=== PATIENT | male | born 2005 | race Caucasian/White ===

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

== ENCOUNTER 2023-11-29 16:17 | Outpatient (REF) | payer MEDICAID, SELFPAY ==
[2023-11-29 17:24] LABS: MANUAL DIFF FLAG NO
[2023-11-29 17:32] LABS: Basophils Percent Auto 0.3 % (0-2); Eosinophils Absolute Auto 0.5 X10*3/uL (0.0-0.4); Eosinophils Percent Auto 8.1 % (0-4); Hemoglobin 13.6 g/dl (14.0-18.0); Imm Gran Abs Auto 0.02 X10*3/uL (0.00-0.03); Imm Gran Pct Auto 0.3 % (0.0-0.4); Lymphocytes Absolute Auto 1.9 X10*3/uL (1.2-4.9); Lymphocytes Percent Auto 29.6 % (20-40); Mean Corpuscular HGB Conc 32.4 g/dl (31.0-36.0); Mean Corpuscular Hemoglobin 27.5 pg (27.0-33.0); Mean Corpuscular Volume 84.8 fL (80.0-98.0); Mean Platelet Volume 9.4 fL (9.4-12.4); Monocytes Absolute Auto 0.5 X10*3/uL (0.1-1.2); Monocytes Percent Auto 7.9 % (2-11); Neutrophils Absolute Auto 3.4 x10*3/uL (2.0-8.3); Neutrophils Percent Auto 53.8 % (45-73); Platelet Count 300 X10*3/uL (160-400); Red Blood Count 4.95 X10*6/uL (4.60-5.80); Red Cell Distribution Width 12.5 % (11.0-16.0); White Blood Count 6.3 X10*3/uL (4.8-10.8)
[2023-11-29 18:15] LABS: Alanine Aminotransferase 51 U/L (0-40); Albumin Level 4.5 g/dL (3.5-5.0); Alkaline Phosphatase 70 U/L (39-117); Anion Gap 13 (12-20); Aspartate Amino Transferase 36 U/L (5-37); Bilirubin Total 0.3 mg/dL (0.0-1.0); Blood Urea Nitrogen 16 mg/dL (9-16); Calcium 9.6 mg/dL (8.4-10.2); Carbon Dioxide 27 mmol/L (22-29); Chloride 106 mmol/L (96-108); Cholesterol 149 mg/dL (<200); Estimated Glomerular Filt Rate > 60; Glucose Random 96 mg/dL (60-115); HDL Cholesterol 35 mg/dL (>40); LDL Cholesterol Calculated 80 mg/dL (<100); Potassium 3.9 mmol/L (3.3-5.1); Sodium 142 mmol/L (135-145); Total Protein 7.4 g/dL (6.5-8.0); Triglycerides 170 mg/dL (<150)
[2023-11-29 18:30] LABS: TSH reflex Free T4 1.95 uIU/mL (0.32-4.0)
[2023-11-30 04:27] LABS: HIV AB/AG Nonreactive (Nonreactive); HIV Num 1 0.06 S/CO (0.00-0.99); ~Hepatitis C Antibody Nonreactive (Nonreactive)
[2023-11-30 05:26] LABS: Estimated Average Glucose 111 mg/dL; Hemoglobin A1C 121.8751 umol/L; Hemoglobin A1c % 5.5 % (<6.0); Total Hemoglobin (HGBA1C) 3350.0486 umol/L
[2023-11-30 14:44] LABS: CT PCR DETECTED (Not Detect.); NG PCR NOT DETECTED (Not Detect.)
== END 2023-11-29 16:18 | disposition home or self-care (01) ==
LOC: HO.HHCL 16:17
PROVIDERS: Visit Provider Nurse Practitioner Family
DX: Z00.00 Encounter for general adult medical examination without abnormal findings (principal); R55 Syncope and collapse
CPT/HCPCS: 36415; 80053; 80061; 83036; 84443; 85025; 86803; 87389; 87491; 87591

== ENCOUNTER 2024-12-18 16:35 | Outpatient (REF) | payer MEDICAID, SELFPAY ==
--- OUTSIDE RECORDS SUMMARY | 2024-12-18 10:45 | XMS_ITS | Encounter Summary ---
Author Organization [employer] Address [address] [place] [address] [address] [address] Care Team Providers Care Graduate Teaching Associate Name Role Phone Ruth Peter NP Primary Care Provider [phone] Reason for Referral * Consultation (Routine) - Canceled Specialty Diagnoses / Procedures Referred By Sirisha moses Referred To Contact Physical Therapy Diagnoses Chronic pain of right knee Ruth Peter NP [address] [place] [address] Phone: tel: fax: Referral ID Status Reason Start Date Expiration Date Visits Requested Visits Authorized [id number] Canceled Specialty Services Required 12/18/2024 12/18/2025 1 1 Reason for Visit * Reason Comments Annual Exam Encounter Details Date Type Department Care Team ([facility] st Contact Info) Description 12/18/2024 10:45 AM EST Office Visit [facility] [address], [place] [phone] Ruth Peter NP [address] [place] [address] Healthcare maintenance (Primary Dx); Acute cough; Mild intermittent asthma, unspecified whether complicated; Dietary counseling; Exercise counseling; Chronic pain of right knee Social History Tobacco Use Types Packs/Day Years Used Date Smoking Tobacco: Never Passive Smoke Exposure: Never Smokeless Tobacco: Never Alcohol Use Standard Drinks/Week Comments Never 0 (1 standard drink = 0.6 oz pur e alcohol) Depression Answer Date Recorded Patient Health Questionnaire-9 Score 3 12/18/2024 Patient Health Questionnaire-9 Score 3 12/18/2024 Last PHQ-9: Questionnaire Data Not on file 1 02/18/2024 Housing Stability Answer Date Recorded What is your housing situation today? I have rl cleaning 12/11/[address] you li ve. Do you have problems with any of the following? None of the above 12/11/2024 Food Insecurity Answer Date Recorded Within the past 12 months, y ou worried that your food would run out before you got money to buy more: Never True 12/11/2024 Within the past 12 months,th e food you bought just didn't last and you didn't have enough money to get more: Never True 04/2024 Transportation Answer Date Recorded In the past 12 months, has l ack of transportation kept you from medical appts, meetings, work or from getting things needed for daily living? No 12/11/2024 Utilities Answer Date Recorded In the past 12 months, has t he electric, gas, oil or water company threatened to shut off services in your home? No 12/11/2024 Depression Answer Date Recorded Patient Health Questionnaire-2 Score 1 12/18/2024 Internet Access Answer Date Recorded Internet Access Q1 Yes 12/11/2024 Internet Access Q2 Not on file 12/11/2024 Sex and Gender Information Value Date Recorded Sex Assigned at Male 12/08/2021 10:18 AM EDT Legal Sex Male 10:18 AM EDT Gender Identity Male 12/08/2021 10:18 AM EDT Sexual Orientation Straight 12/08/2021 10 :18 AM EDT documented as of this encounter Last Filed Vital Signs Vital Sign Reading Time Taken Comments Blood Pressure 122/58 12/18/2024 10:59 AM EST Pulse 76 12/18/2024 10:59 AM EST Temperature 36.9 C (98.4 F) 12/18/2024 10:59 AM EST Respiratory Rate 20 12/18/2024 10:59 AM EST Oxygen Saturation 99% 12/18/2024 10:59 AM EST Inhaled Oxygen Concentration - - Weight 103 kg (226 lb 6.4 oz) 12/18/2024 10:59 A M EST Height 172.7 cm (5' 8 ) 12/18/2024 10:59 AM EST Body Mass Index 34.42 12/18/2024 10:59 AM EST documented in this encounter Functional Status * Over the past 2 weeks, how often have you been bothered by any of the following problems? Question Answer Date of Assessment Author Patient Health Questionnaire -2 Score 1 12/18/2024 11:31 AM Jacque Glasgow [place] * Little interest or pleasure in doing things Answer Date of Assessment Author Several days 12/18/2024 11:31 AM Jacque Glasgow [place] * Feeling down, depressed, or hopeless Answer Date of Assessment Author Not at all 12/18/2024 11:31 AM Jacque Glasgow [place] * Trouble falling or staying asleep, or sleeping too much Answer Date of Assessment Author Several days 12/18/2024 11:31 AM Jacque Glasgow [place] * Feeling tired or having little energy Answer Date of Assessment Author Several days 12/18/2024 11:31 AM Jacque Glasgow [place] * Poor appetite or overeating Answer Date of Assessment Author Not at all 12/18/2024 11:31 AM Jacque Glasgow [place] * Feeling bad about yourself - or that you are a failure or have let yourself or your family down Answer Date of Assessment Author Not at all 12/18/2024 11:31 AM Jacque Glasgow [place] * Trouble concentrating on things, such as reading the newspaper or watching television Answer Date of Assessment Author Not at all 12/18/2024 11:31 AM Jacque Glasgow [place] * Moving or speaking so slowly that other people could have noticed? Or the opposite - being so fidgety or restless that you have been moving around a lot more than usual. Answer Date of Assessment Author Not at all 12/18/2024 11:31 AM Jacque Glasgow [place] * Thoughts that you would be better off or hurting yourself in some way Answer Date of Assessment Author Not at all 12/18/2024 11:31 AM Jacque Glasgow [place] * Patient Health Questionnaire-9 Score Answer Date of Assessment Author 3 12/18/2024 11:31 AM Jacque Glasgow [place] * How difficult have these problems made it for you to do your work, take care of things at home, or get along with other people? Answer Date of Assessment Author Somewhat difficult 12/18/2024 11:31 AM Jacque Cristina [place] * Over the last 2 weeks, how often have you been bothered by any of the following problems? Question Answer Date of Assessment Author Feeling nervous, anxious, or on edge 1 12/18/2024 11:32 AM Jacque Glasgow [place] Not being able to stop or co ntrol worrying 0 12/18/2024 11:32 AM Jacque Glasgow [place] Worrying too much about diff erent things 0 12/18/2024 11:32 AM Jacque Glasgow [place] Trouble relaxing 0 12/18/2024 11:32 AM Jacque Glasgow [place] Being so restless that it is hard to sit still 0 12/18/2024 11:32 AM Jacque Glasgow [place] Becoming easily annoyed or irritable 1 12/18/2024 11:32 AM Jacque Glasgow [place] Feeling afraid as if somethi ng awful might happen 0 12/18/2024 11:32 AM Jacque Glasgow MA KOKI-7 Total Score 2 12/18/2024 11:32 AM Jacque Glasgow [place] documented as of this encounter Progress Notes * Ruth Peter NP - 12/18/2024 10:45 AM EST Subjective: Karthik Carvalho is a 19 y.o. male who presents to the office for a physical exam. Interim history: Karthik Carvalho, 19-year-old male - History of asthma, no current flare-ups reported - Focus on weight loss, lost approximately 10 lbs over the past year (from 236 lbs to 226 lbs) - Right knee pain with pressure or when getting on bed, no pain with walking - Denies depression, anxiety, alcohol, tobacco, or drug use - Reports mental health is good Problem List[1] Surgical History[2] Family History[3] Social History Living situation: house with mom and stepdad, and sibling, Employment/Education: Diet/exercise: Substance use: -alcohol no -tobacco no -opioids no Sexual activity: Mental health: Patient Health Questionnaire-9 Score: 3 (12/18/2024 11:31 AM) Patient Health Questionnaire-2 Score: 1 (12/18/2024 11:31 AM) Thoughts that you would be better off or hurting yourself in some way: Not at all (12/18/2024 11:31 AM) Allergies[4] Review of Systems Constitutional: Negative for activity change and appetite change. HENT: Negative for congestion and dental problem. Respiratory: Positive for shortness of breath and wheezing. Negative for apnea, choking and chest tightness. Cardiovascular: Negative for chest pain and leg swelling. Genitourinary: Negative for difficulty urinating and dysuria. Vitals: 12/18/24 1059 BP: 122/58 BP Location: Right arm Patient Position: Sitting BP Cuff Size: Large adult Pulse: 76 Resp: 20 Temp: 98.4 ??F (36.9 ??C) TempSrc: Oral SpO2: 99% Weight: 226 lb 6.4 oz (103 kg) Height: 5' 8 (1.727 m) Physical Exam Vitals reviewed. Constitutional: Appearance: Normal appearance. He is obese. HENT: Head: Normocephalic. Right Ear: Tympanic membrane and external ear normal. Left Ear: Tympanic membrane and external ear normal. Nose: Nose normal. Mouth/Throat: Mouth: Mucous membranes are moist. Eyes: Conjunctiva/sclera: Conjunctivae normal. Cardiovascular: Rate and Rhythm: Normal rate. Pulses: Normal pulses. Heart sounds: Normal heart sounds. Pulmonary: Effort: Pulmonary effort is normal. Breath sounds: Normal breath sounds. Abdominal: General: Bowel sounds are normal. Palpations: Abdomen is soft. Musculoskeletal: Cervical back: Neck supple. Skin: General: Skin is warm. Capillary Refill: Capillary refill takes less than 2 seconds. Neurological: General: No focal deficit present. Mental Status: He is alert. Psychiatric: Mood and Affect: Mood normal. - ABDOMEN: Abdomen nontender to palpation. - MUSCULOSKELETAL: Right knee tenderness upon palpation; possible patellofemoral syndrome observed. Assessment & Plan Healthcare maintenance Orders: Chlamydia/N. Gonorrhoeae, PCR, Urine Acute cough Orders: albuterol 108 (90 Base) MCG/ACT inhaler; Inhale 2 puffs every 6 (six) hours if needed for wheezing. Mild intermittent asthma, unspecified whether complicated Orders: albuterol 108 (90 Base) MCG/ACT inhaler; Inhale 2 puffs every 6 (six) hours if needed for wheezing. Dietary counseling Dietary Recommendations: Fruits, vegetables, whole grains, protein foods, and fat-free or low-fat dairy products are healthychoices. Eat different types of protein foods in your diet. This can include seafood, lean meats, poultry, beans, peas, lentils, nuts, seeds, soy products, and eggs. Limit foods and beverages higher in added sugars, saturated fat, and sodium. Exercise Recommendations: At least 150 minutes of moderate-intensity physical activity per week, or an equivalent combinationof moderate- and vigorous-intensity activity Exercise counseling Chronic pain of right knee Orders: Referral to Physical Therapy; Future Assessment & Plan Healthcare maintenance: - General health maintenance addressed, including immunization status and preventive care. - Confirmed tetanus vaccination up to date as of last year. Offered flu and COVID-19 vaccines; declined. Offered sexual health screening for gonorrhea and chlamydia via urine test. Will follow up in six months for health check-in. Mild intermittent asthma, unspecified whether complicated: - Asthma discussed, with symptoms potentially exacerbated by physical activity and winter season. - Renewed inhaler prescription. Recommended maintaining asthma control through regular use of inhaler and staying active. Dietary counseling: - Dietary habits and weight loss goals discussed. - Recommended increasing intake of fruits and vegetables, reducing processed foods, and eating healthy dinners. Pension Examiner referral offered; declined. Exercise counseling: - Exercise habits and physical activity discussed in context of weight loss and job-related activity. - Recommended regular physical activity prior to leisure activities. Encouraged continued activity through work and exercise. Chronic pain of right knee: - Patellofemoral syndrome diagnosed, with pain localized to right knee, especially with pressure. - Referred to physical therapy for assessment and strengthening exercises targeting thigh and calf muscles to improve knee function and tracking. Advised to perform home exercises as instructed by physical therapist. Prescription - Asthma inhaler renewed Appointments - Physical therapy consultation for right knee strengthening - Pension Examiner consultation for dietary guidance - Follow-up health check in six months Routine Screening and Health Maintenance Optometry: No Dental: Yes No visits with results within 3 Month(s) from this visit. Latest known visit with results is: Office Visit on 11/29/2023 Component Date Value Ref Range Status CT PCR 11/29/2023 DETECTED (A) Not Detect. Final Detected results may be observed after successful antibiotictreatment due to target nucleic acids from residualnon-viable chlamydia. As with many diagnostic tests, resultsfrom the Xpert CT/NG assay should be interpreted inconjunction with other laboratory and clinical dataavailable to the clinician.Xpert CT/NG performance has not been evaluated in patientsless than 14 years of age. The assay should not be used forthe evaluationof suspected sexual abuse or for other medico-legalindications. Additional testing is recommended inany circumstance when false positive or false negativeresults could lead to adverse medical, social orpsychological consequences.These results must be reported by the or [facility] clinician orclinical facility to the [facility]as required by state law. NG PCR 11/29/2023 NOT DETECTED Not Detect. Final A not detected test result does not exclude the possibilityof infection because test results can beaffected byimproper specimen collection, concurrent antibiotic therapy,or the number of organisms in the specimen which may bebelow the sensitivity of the test. As with many diagnostictests, results from the Xpert CT/NG assay should beinterpreted in conjunction with other laboratory andclinical data available to the clinician.Xpert CT/NG performance has not been evaluated in patientsless than 14 years of age. The assay should not be used forthe evaluationof suspected sexual abuse or for other medico-legalindications. Additional testing is recommended in anycircumstance when false positive or f alse negative resultscould lead to adverse medical, social or psychologicalconsequences. TSH reflex Free T4 11/29/2023 1.95 0.32 - 4.0 uIU/mL Final Sodium 11/29/2023 142 135 - 145 mmol/L Final Potassium 11/29/2023 3.9 3.3 - 5.1 mmol/L Final Chloride 11/29/2023 106 96 - 108 mmol/L Final Carbon Dioxide 11/29/2023 27 22 - 29 mmol/L Final Anion Gap 11/29/2023 13 12 - 20 Final Urea Nitrogen (BUN) 11/29/2023 16 9 - 16 mg/dL Final Creatinine, Serum 11/29/2023 0.92 0.5 - 1.4 mg/dL Final Estimated Glomerular Filt Rate 11/29/2023 >60 Final NOTE: For -[place] individuals, multiply the result by 1.210.Chronic Kidney Disease: Estimated GFR < 60 mL/min/1.17c0Qovehg Kidney Disease: Estimated GFR < 15 mL/min/1.73m2 Glucose 11/29/2023 96 60 - 115 mg/dL Final Calcium 11/29/2023 9.6 8.4 - 10.2 mg/dL Final Bilirubin, Total 11/29/2023 0.3 0.0 - 1.0 mg/dL Final Aspartate Amino Transferase 11/29/2023 36 5 - 37 U/L Final Alanine Aminotransferase 11/29/2023 51 (H) 0 - 40 U/L Final Total Protein 11/29/2023 7.4 6.5 - 8.0 g/dL Final Albumin Level 11/29/2023 4.5 3.5 - 5.0 g/dL Final Alkaline Phosphatase 11/29/2023 70 39 - 117 U/L Final Hemoglobin A1c 11/29/2023 5.5 <6.0 % Final Hemoglobin A1C Reference Range Adults: 4.8 - 6.0 % Non diabetic: < 6.0 % Goal: < 7.0 %Additional Action Suggested: > 8.0 %Note: Hemoglobin A1c results are invalid for patients with abnormalamounts of HbF. Blood transfusions may impact the HbA1c concentration in the patient sample. Estimated Average Glucose 11/29/2023 111 mg/dL Final eAG = Estimated average glucose which is %A1C expressed asaverage glucose, using the formula of the [id number] Glucose study (ADAG), Diabetes Care, Vol.31,#8,2007 White Blood Count 11/29/2023 6.3 4.8 - 10.8 X10*3/uL Final Red Blood Count 11/29/2023 4.95 4.60 - 5.80 X10*6/uL Final Hemoglobin 11/29/2023 13.6 (L) 14.0 - 18.0 g/dl Final Hematocrit 11/29/2023 42.0 42.0 - 52.0 % Final Mean Corpuscular Volume 11/29/2023 84.8 80.0 - 98.0 fL Final Mean Corpuscular Hemoglobin 11/29/2023 27.5 27.0 - 33.0 pg Final Mean Corpuscular HGB Conc 11/29/2023 32.4 31.0 - 36.0 g/dl Final Red Cell Distribution Width 11/29/2023 12.5 11.0 - 16.0 % Final Platelet Count 11/29/2023 300 160 - 400 X10*3/uL Final Mean Platelet Volume 11/29/2023 9.4 9.4 - 12.4 fL Final Neutrophils Percent Auto 11/29/2023 53.8 45 - 73 % Final Imm Gran Pct Auto 11/29/2023 0.3 0.0 - 0.4 % Final Lymphocytes Percent Auto 11/29/2023 29.6 20 - 40 % Final Monocytes Percent Auto 11/29/2023 7.9 2 - 11 % Final Eosinophils Percent Auto 11/29/2023 8.1 (H) 0 - 4 % Final Basophils Percent Auto 11/29/2023 0.3 0 - 2 % Final NRBC Pct Auto 11/29/2023 0.0 0.0 - 0.2 /100WBC Final Neutrophils Absolute Auto 11/29/2023 3.4 2.0 - 8.3 x10*3/uL Final Imm Gran Abs Auto 11/29/2023 0.02 0.00 - 0.03 X10*3/uL Final Lymphocytes Absolute Auto 11/29/2023 1.9 1.2 - 4.9 X10*3/uL Final Monocytes Absolute Auto 11/29/2023 0.5 0.1 - 1.2 X10*3/uL Final Eosinophils Absolute Auto 11/29/2023 0.5 (H) 0.0 - 0.4 X10*3/uL Final Basophils Absolute Auto 11/29/2023 0.0 0.0 - 0.2 X10*3/uL Final NRBC Abs Auto 11/29/2023 0.000 0.0 - 0.012 X10*3/uL Final Triglycerides 11/29/2023 170 (H) <150 mg/dL Final Desirable Triglyceride: less than 150 mg/dLBorderline High Triglyceride 150-199 mg/dLHigh Triglyceride: 200-499 mg/dLVery High Triglyceride: greater than or equal to 5OO mg/dL Cholesterol 11/29/2023 149 <200 mg/dL Final Desirable Cholesterol: less than 200 mg/dLBorderline High Cholesterol: 200-239 mg/dLHigh Cholesterol: greater than 239 mg/dL LDL Cholesterol Calculated 11/29/2023 80 <100 mg/dL Final Desirable LDL: less than 100 mg/dLNear Optimal/Above Optimal LDL: 110-129 mg/dLBorderline High LDL:130-159 mg/dLHigh LDL: 160-189 mg/dLVery High LDL: greater than or equal to 190 mg/dL HDL Cholesterol 11/29/2023 35 (L) >40 mg/dL Final Desirable HDL: greater than 40 mg/dL Note: This HDL assay may give artificially low results in patients with liver disease. HIV AB/AG 11/29/2023 Nonreactive Nonreactive Final HIV-1 p24 Ag and/or HIV-1/HIV-2 Ab not detected.A test result that is nonreactive does not exclude thepossibility of exposure to or infection with HIV-1 and/orHIV-2. Nonreactive results in this assayfor individualswith prior exposure to HIV-1 and/or HIV-2 may be due toantigen and antibody levels that are below the limit ofdetection of this assay.The [employer] IQ HIV Ag/Ab Combo assay result andsupplemental assay results should be interpreted inconjunction with the patient's clinical presentation,history and other laboratory results. If the results areinconsistent with clinical evidence, additional testing issuggested to confirm the result. Hepatitis C Antibody 11/29/2023 Nonreactive Nonreactive Final Antibodies to HCV not detected; does not exclude early acuteHCV infection. Current Medications[5] Immunization History Administered Date(s) Administered DTaP 2003, 2003, 02/19/2004, 11/17/2004, 08/23/2007 HPV 9-Valent 11/12/2014, 01/15/2015, 09/06/2015 Hep A, ped/adol, 2 dose 08/19/2009, 09/25/2010 Hep B, Adolescent or Pediatric 2003, 2003, 02/19/2004 Hib (HbOC) 2003, 2003, 11/17/2004 IPV 2003, 2003, 02/19/2004, 08/23/2007 Influenza injectable quadrivalent preservative free 12/07/2013, 11/12/2014, 11/08/2017, 11/18/2018,05/10/2020 Influenza, IIV3, injectable 12/22/2004, 01/21/2005, 11/18/2005, 12/27/2007 MMR 08/18/2004, 08/23/2007 Meningococcal MCV4P ACYW-135 11/12/2014, 05/10/2020 Pfizer Covid-19 Vaccine 12+ 10/04/2020, 10/29/2020 Pneumococcal Conjugate PCV 7 2003, 2003, 02/19/2004, 11/17/2004 Tdap 11/12/2014, 11/29/2023 Varicella 08/18/2004, 08/23/2007 This note was drafted using Ambient (AI) technology. The patient/patient's guardian has been informed and has consented to the use of this technology: Yes [1] Patient Active Problem List Diagnosis Hypovitaminosis D Vasovagal syncope Chlamydia Routine general medical examination at a health care facility Encounter for immunization Dietary counseling Exercise counseling Acute cough Routine screening for STI (sexually transmitted infection) Mild intermittent asthma Chest tightness Chronic pain of right knee [2] No past surgical history on file. [3] No family history on file. [4] No Known Allergies [5] Current Outpatient Medications Medication Sig Dispense Refill acetaminophen (Tylenol) 325 MG tablet 1 tablet by oral route every 4 to 6 hours prn fever or pain albuterol 108 (90 Base) MCG/ACT inhaler Inhale 2 puffs every 6 (six) hours if needed for wheezing. 18 g 1 cholecalciferol (Vitamin D-3) 25 MCG (1000 UT) tablet 1 tablet by oral route daily No current facility-administered medications for this visit. documented in this encounter Miscellaneous Notes * Assessment & Plan Note - Ruth Peter NP - 12/18/2024 10:45 AM ESTAssociated Problem(s): Dietary counseling Dietary Recommendations: Fruits, vegetables, whole grains, protein foods, and fat-free or low-fat dairy products are healthychoices. Eat different types of protein foods in your diet. This can include seafood, lean meats, poultry, beans, peas, lentils, nuts, seeds, soy products, and eggs. Limit foods and beverages higher in added sugars, saturated fat, and sodium. Exercise Recommendations: At least 150 minutes of moderate-intensity physical activity per week, or an equivalent combinationof moderate- and vigorous-intensity activity * Assessment & Plan Note - Ruth Peter NP - 12/18/2024 10:45 AM ESTAssociated Problem(s): Acute cough Orders: albuterol 108 (90 Base) MCG/ACT inhaler; Inhale 2 puffs every 6 (six) hours if needed for wheezing. * Assessment & Plan Note - Ruth Peter NP - 12/18/2024 10:45 AM ESTAssociated Problem(s): Mild intermittent asthma Orders: albuterol 108 (90 Base) MCG/ACT inhaler; Inhale 2 puffs every 6 (six) hours if needed for wheezing. * Assessment & Plan Note - Ruth Peter NP - 12/18/2024 10:45 AM ESTAssociated Problem(s): Exercise counseling * Assessment & Plan Note - Ruth Peter NP - 12/18/2024 10:45 AM ESTAssociated Problem(s): Chronic pain of right knee Orders: Referral to Physical Therapy; Future documented in this encounter Plan of Treatment Scheduled Orders Name Type Priority Associated Diagnoses Orde r Schedule Chlamydia/N. Gonorrhoeae, PCR, Urine Lab Routine Healthcare maintenance Ordered: 12/18/2024 Scheduled Referrals Name Type Priority Associated Diagnoses Orde r Schedule Referral to Physical Therapy Outpatient Referral Routine Chronic pain of right knee Expected: 12/18/2024 (Approximate), Expires: 12/18/2025 documented as of this encounter Visit Diagnoses Diagnosis Healthcare maintenance- Primary Acute cough Mild intermittent asthma, unspecified whether complicated Dietary counseling Dietary surveillance and counseling Exercise counseling Chronic pain of right knee documented in this encounter Additional Health Concerns Assessment Noted Time PHQ-9 Depression Total Score: 3 12/19/19 25 11:31 AM EST documented as of this encounter Care Teams Graduate Teaching Associate Relationship Specialty Start Date End Date Ruth Peter NP [address] [place] [id number] PCP - General Family Medicine 11/29/23 documented as of this encounter
--- OUTSIDE RECORDS SUMMARY | 2024-12-18 18:03 | XMS_ITS | Clinical Summary ---
Author Organization [employer] Address [address] [facility] [address] [place] [address] Care Team Providers Care Radiation Monitor Name Role Phone Ruth Peter NP Primary Care Provider [phone] Allergies No known active allergies Medications acetaminophen (Tylenol) 325 MG tablet 1 tablet by oral route every 4 to 6 hours prn fever or pain 05/11/19 21 Active cholecalciferol (Vitamin D-3) 25 MCG (1000 UT) tablet 1 tablet by oral route daily 06/13/19 22 Active albuterol 108 (90 Base) MCG/ACT inhalerIndicatio ns:Acute cough,Mild intermittent asthma, unspecified whether complicated Inhale 2 puffs every 6 (six) hours if needed for wheezing. 18 g 1 12/19/19 25 026 Active albuterol 108 (90 Base) MCG/ACT inhalerIndicatio ns:Acute cough,Chest tightness,Mild intermittent asthma, unspecified whether complicated Inhale 2 puffs every 6 (six) hours if needed for wheezing. 18 g 1 11/29/19 24 025 Discontinued(Re order (will not trigger notification to Pharmacy)) Active Problems Problem Noted Date Diagnosed Date Chest tightness 12/18/2024 Chronic pain of right knee 12/18/2024 Assessment & Plan (12/18/2024 1:47 PM EST): Orders: Referral to Physical Therapy; Future Routine general medical exam ination at a health care facility 12/05/2023 Assessment & Plan (12/05/2023 7:17 PM EDT): Metabolic labs and screening as ordered below, Anticipatory guidance reviewed Encounter for immunization 12/05/2023 Dietary counseling 12/05/2023 Assessment & Plan (12/18/2024 1:47 PM EST): Dietary Recommendations: Fruits, vegetables, whole grains, protein foods, and fat-free or low-fat dairy products are healthy choices. Eat different types of protein foods in your diet. This can include seafood, lean meats, poultry, beans, peas, lentils, nuts, seeds, soy products, and eggs. Limit foods and beverages higher in added sugars, saturated fat, and sodium. Exercise Recommendations: At least 150 minutes of moderate-intensity physical activity per week, or an equivalent combination of moderate- and vigorous-intensity activity Assessment & Plan (12/05/2023 7:16 PM EDT): Encouraged minimizing processed foods and increasing whole foods particularly vegetables Exercise counseling 12/05/2023 Assessment & Plan (12/18/2024 1:47 PM EST): Assessment & Plan (12/05/2023 7:17 PM EDT): Encouraged daily movement Plans to go to gym Acute cough 12/05/2023 Assessment & Plan (12/18/2024 1:47 PM EST): Orders: albuterol 108 (90 Base) MCG/ACT inhaler; Inhale 2 puffs every 6 (six) hours if needed for wheezing. Routine screening for STI (sexually transmitted infection) 12/05/2023 Mild intermittent asthma 12/05/2023 Assessment & Plan (12/18/2024 1:47 PM EST): Orders: albuterol 108 (90 Base) MCG/ACT inhaler; Inhale 2 puffs every 6 (six) hours if needed for wheezing. Assessment & Plan (12/05/2023 7:16 PM EDT): Renew inhaler, Return to clinic For increased cough wheeze or sob Chlamydia 12/03/2023 Vasovagal syncope 11/29/2023 Assessment & Plan (12/05/2023 7:19 PM EDT): Consistent with hx, no s/s of cardiac etiology, labs as ordered below, seek urgent care should pt feel lightheaded Previous work up reviewed Hypovitaminosis D 07/01/2022 Resolved Problems Problem Noted Date Diagnosed Date Resolved Date Depressive disorder 06/15/2022 07/02/19 23 Difficulty sleeping 06/15/2022 07/02/19 23 Encounters Date Type Department Care Team Description 12/18/2024 10:45 AM EST Office Visit [facility] [address] [place] [phone] Ruth Peter NP Healthcare maintenance (Primary Dx); Acute cough; Mild intermittent asthma, unspecified whether complicated; Dietary counseling; Exercise counseling; Chronic pain of right knee 12/18/2024 Travel 12/15/2024 Telephone [facility] [address] [place] [address] [phone] Hemanth Sewell MA chart prep 12/11/2024 Patient Outreach [facility] [address] [place] [address] Ruth Peter NP Pre-visit Planning (SDOH negative, Tobacco screening negative. ) from Last 3 Months Immunizations Immunization Administration Dates Next Due DTaP 08/23/2007, 5,02/19/2004,12/18,2003 HPV 9-Valent 09/06/2015,01/15/2015,11/12/2014 Hep A, ped/adol, 2 dose 09/25/2010,08/19/2009 Hep B, Adolescent or Pediatric 02/19/2004,2003,2003 Hib (HbOC) 11/17/2004,2003,2003 IPV 08/23/2007, 5,2003,10/18 Influenza injectable quadriv alent preservative free 05/10/2020,11/18/2018,11/08/2017,11/12,12/07/2013 Influenza, IIV3, injectable 12/27/2007,1 ,01/21/2005,12/22 MMR 08/23/2007,08/18/2004 Meningococcal MCV4P ACYW-135 05/10/2020,11/13/19 15 Pneumococcal Conjugate PCV 7 11/17/2004, 02/19/2004,2003,10/18 Tdap 11/29/2023,11/12/2014 Varicella 08/23/2007,08/18/2004 Social History Tobacco Use Types Packs/Day Years Used Date Smoking Tobacco: Never Passive Smoke Exposure: Never Smokeless Tobacco: Never Tobacco Cessation:Counseling Given: Not Answered Alcohol Use Standard Drinks/Week Comments Never 0 [...] Orientation Straight 12/08/2021 10 :18 AM EDT Last Filed Vital Signs Vital Sign Reading [...] Mass Index 34.42 12/18/2024 10:59 AM EST Plan of Treatment Health Maintenance Due Date Last Done Comments Family Planning (PISQ) 08/16/2018 Meningococcal B Vaccine (1 of 2 - Standard) 2019 Pneumococcal Vaccine: Pediatrics (0 to 5 Years) and At-Risk Patients (6 to 49) Years (1 of 2 - PCV) 08/16/2022 11/17/2004, 02/19/2004, 2003, Additional history exists COVID-19 Vaccine ( - season) 2024 10/29/2020, 10/04/2020 Influenza Vaccine (#1) 2024 , 11/18/2018, 11/08/2017, Additional history exists Chlamydia and Gonorrhea Screening 11/28/2024 11/29/2023 Alcohol/Substance Use Screening 12/18/2025 12/18/2024 Depression Screening 12/18/2025 12/18/2024, 12/19/19 25 Disability Screening 12/18/2025 12/18/2024 SDOH Screening 12/18/2025 12/18/2024 Tobacco Screening 12/18/2025 12/18/2024 DTaP/Tdap/Td Vaccines (8 - Td or Tdap) 11/28/2033 11/29/2023, 11/12/2014, 08/23/2007, Additional history exists Zoster Vaccines (1 of 2) 08/16/2053 RSV Patients and Patients Aged 60 years or older (1 - 1-dose 75+ series) 08/16/2078 Hepatitis B Vaccines Completed 02/19/2004, 2003, 2003 HIB Vaccines Completed 11/17/2004, 12/09, 2003 IPV Vaccines Completed 08/23/2007, 02/08, 2003, Additional history exists Hepatitis A Vaccines Completed 09/25/2010, 08/20/19 10 HPV Vaccines Completed 09/06/2015, 09/2014, 11/12/2014 Meningococcal Vaccine Completed 05/10/2020, 015 HIV Screening Completed 11/29/2023 Hepatitis C Screening Completed 11/29/2023 RSV under 20 months Aged Out No longe r eligible based on patient's age to complete this topic Rotavirus Vaccines Aged Out No longer eligible based on patient's age to complete this topic Procedures Procedure Name Priority Date/Time Associated Diagnosis Comments HEPATITIS C AB W/REFL TO HCV RNA, QN, PCR Routine 11/29/2023 4:19 PM EDT Routine general medical examination at a health care facility HIV 1/2 ANTIGEN/ANTIBODY, FOURTH GENERATION W/RFL Routine 11/29/2023 4:19 PM EDT Routine general medical examination at a health care facility CHLAMYDIA/N. GONORRHOEAE RNA, TMA, UROGENITAL Routine 11/29/2023 2:05 PM EDT Routine screening for STI (sexually transmitted infection) from Last 3 Months or Most Recently Relevant to Health Maintenance Results * Hepatitis C Antibody with Reflex to HCV, RNA, Quantitative, Real-Time PCR (11/29/2023 4:19 PM EDT) Hepatitis C Antibody Nonreactive Nonreactive [facility] Comment:Antibodies to HCV no t detected; does not exclude early acuteHCV infection. Blood Venous blood specimen / Unknown 11/29/2023 4:19 PM EDT 11/29/2023 5:22 PM EDT Ruth Peter NP LAB BLOOD ORDERABLES Final Resul t Performing Organization Address City/[facility]/ZIP Co de Phone Number [facility] [address] [place] [address] [phone] * HIV-1/2 Antigen and Antibodies, Fourth Generation, with Reflexes (11/29/2023 4:19 PM EDT) HIV AB/AG Nonreactive Nonreactive [facility] Comment:HIV-1 p24 Ag and/or HIV-1/HIV-2 Ab not detected.A test result that is nonreactive does not exclude thepossibility of exposure to or infection with HIV-1 and/orHIV-2. Nonreactive results in this assay for individualswith prior exposure to HIV-1 and/or HIV-2 may be due toantigen and antibody levels that are below the limit ofdetection of this assay.The [employer] HIV Ag/Ab Combo assay result andsupplemental assay results should be interpreted inconjunction with the patient's clinical presentation,history and other laboratory results. If the results areinconsistent with clinical evidence, additional testing issuggested to confirm the result. Blood Venous blood specimen / Unknown 11/29/2023 4:19 PM EDT 11/29/2023 5:22 PM EDT Ruth Peter NP LAB BLOOD ORDERABLES Final Resul t Performing Organization Address [facility]/ZIP Co de Phone Number [facility] [address] [place] [address] [phone] * (ABNORMAL) Chlamydia/N. Gonorrhoeae RNA, TMA, Urogenitial (11/29/2023 2:05 PM EDT) CT PCR DETECTED(A) Not Detect. [facility] Comment:Detected results may be observed after successful antibiotictreatment [...] evaluationof suspected sexual abuse or for other medico- legalindications. Additional testing is recommended inany circumstance when false positive or false negativeresults could lead to adverse medical, social orpsychological consequences.These results must be reported by the ordering clinician orclinical facility to the [facility] required by state law. NG PCR NOT DETECTED Not Detect. [facility] Comment:A not detected test result does not exclude the possibilityof infection because test results can be affected byimproper specimen collection, concurrent antibiotic therapy,or the [...] recommended in anycircumstance when false positive or false negative resultscould lead to adverse medical, social or psychologicalconsequences. Urine (Urine, Random) 11/29/2023 2:05 PM EDT 11/30/2023 1:03 PM EDT Narrative [facility] - 11/30/2023 2:44 PM EDT Urine us Ruth Peter NP LAB MICROBIOLOGY - GENERAL ORDER [place] Final Result [facility] [address] [place] [phone] [phone] from Last 3 Months or Most Recently Relevant to Health Maintenance Insurance [id number] Care Teams Radiation Monitor Relationship Specialty Start Date End Date Ruth Peter NP [address] [place] [phone] PCP - General Family Medicine 11/29/23
--- OUTSIDE RECORDS SUMMARY | 2024-12-18 18:03 | XMS_ITS | Encounter Summary ---
Author Organization [employer] Address [address] [facility] 7t [place] [address] Care Team Providers Care Collections Professional Name Role Phone Ruth Peter NP Primary Care Provider [phone] Encounter Details Date Type Department Care Team ([facility] st Contact Info) Description 12/03/2023 Orders Only [facility] [address] [place], [place] [phone] Ruth Peter NP [address] [place], [place] [phone] Chlamydia (Primary Dx) Social History Tobacco Use Types Packs/Day Years Used Date Smoking Tobacco: Never Passive Smoke Exposure: Never Smokeless Tobacco: Never Alcohol Use Standard Drinks/Week Comments Never 0 (1 standard drink = 0.6 oz pur e alcohol) Depression Answer Date Recorded Patient Health Questionnaire-9 Score 3 06/29/2022 Housing Stability Answer Date Recorded What is your housing situation today? I have rl cleaning 12/11/[address] you li ve. Do you have problems with any of the following? None of the above 12/11/2022 Food Insecurity Answer Date Recorded Within the past 12 months, y ou worried that your food would run out before you got money to buy more: Never True 12/11/2022 Within the past 12 months,th e food you bought just didn't last and you didn't have enough money to get more: Never True 04/2022 Transportation Answer Date Recorded In the past 12 months, has l ack of transportation kept you from medical appts, meetings, work or from getting things needed for daily living? No 12/11/2022 Utilities Answer Date Recorded In the past 12 months, has t he electric, gas, oil or water company threatened to shut off services in your home? No 12/11/2022 Depression Answer Date Recorded Patient Health Questionnaire-2 Score 1 06/29/2022 Sex and Gender Information Value Date Recorded Sex Assigned at Male 12/08/2021 10:18 AM EDT Legal Sex Male 10:18 AM EDT Gender Identity Male 12/08/2021 10:18 AM EDT Sexual Orientation Straight 12/08/2021 10 :18 AM EDT documented as of this encounter Plan of Treatment Not on file documented as of this encounter Visit Diagnoses Diagnosis Chlamydia- Primary Other specified chlamydial infection, in conditions classified elsewhere and of unspecified site documented in this encounter Additional Health Concerns Assessment Noted Time PHQ-9 Depression Total Score: 3 06/30/19 23 6:08 PM EDT documented as of this encounter Care Teams Collections Professional Relationship Specialty Start Date End Date Ruth Peter NP [address] [place] [phone] PCP - General Family Medicine 11/29/23 documented as of this encounter
--- OUTSIDE RECORDS SUMMARY | 2024-12-18 18:03 | XMS_ITS | Encounter Summary ---
Author Organization [employer] Address [address] [facility] [address] [place] [address] Care Team Providers Care Band Director Name Role Phone Ruth Peter NP Primary Care Provider [phone] Encounter Details Date Type Department Care Team (Latest Contact Info) Description 12/18/2024 Travel Social History Tobacco Use Types Packs/Day Years [...] AM EDT documented as of this encounter Functional Status * Over the [...] [place] documented as of this encounter Plan of Treatment Not on file documented as of this encounter Visit Diagnoses Not on filedocumented in this encounter Additional Health Concerns Assessment Noted Time PHQ-9 Depression Total Score: 3 12/19/19 25 11:31 AM EST documented as of this encounter Care Teams Band Director Relationship Specialty Start Date End Date Ruth Peter NP [address] [place] [phone] PCP - General Family Medicine 11/29/23 documented as of this encounter
--- OUTSIDE RECORDS SUMMARY | 2024-12-18 18:03 | XMS_ITS | Encounter Summary ---
Author Organization [employer] Address [address] [facility] [address] [place] [address] Care Team Providers Care Procedures Tech Name Role Phone Ruth Peter NP Primary Care Provider [phone] Reason for Visit * Reason Onset Date Comments chart prep 12/15/2024 Encounter Details Date Type Department Care Team ([facility] st Contact Info) Description 12/15/2024 Telephone [facility] [address] [place] [address] Hematnh Sewell [place] chart prep Social History Tobacco Use Types Packs/Day Years Used Date Smoking Tobacco: Never Passive Smoke Exposure: Never Smokeless Tobacco: Never Alcohol Use Standard Drinks/Week Comments Never 0 (1 standard drink = 0.6 oz pur e alcohol) Depression Answer Date Recorded Patient Health Questionnaire-9 Score 3 06/29/2022 Housing Stability Answer Date Recorded What is your housing situation today? I have rllakshmi cleaning 12/11/[address] you [...] t he electric, gas, oil or water [employer] threatened to shut off services in your home? No 12/11/2024 Depression Answer Date Recorded Patient Health Questionnaire-2 Score 1 06/29/2022 Internet Access Answer Date Recorded Internet Access Q1 Yes 12/11/2024 Internet Access Q2 Not on file 12/11/2024 Sex and Gender Information Value Date Recorded Sex Assigned at Male 12/08/2021 10:18 AM EDT Legal Sex Male 10:18 AM EDT Gender Identity Male 12/08/2021 10:18 AM EDT Sexual Orientation Straight 12/08/2021 10 :18 AM EDT documented as of this encounter Miscellaneous Notes * Telephone Encounter - Hemanth Sewell MA - 12/15/2024 4:13 PM EST Chart Prep Labs: done Images: not applicable Referrals: not applicable Vaccines due: Covid, Flu, PCV20, and MMR Screenings: not applicable Overdue care gaps: SBIRT, PHQ-9, KOKI-7, Disability screen, and Tobacco documented in this encounter Plan of Treatment Not on file documented as of this encounter Visit Diagnoses Not on filedocumented in this encounter Additional Health Concerns Assessment Noted Time PHQ-9 Depression Total Score: 3 06/30/19 23 6:08 PM EDT documented as of this encounter Care Teams Procedures Tech Relationship Specialty Start Date End Date Ruth Peter NP [address] [place] [phone] PCP - General Family Medicine 11/29/23 documented as of this encounter
[2024-12-18 18:19] LABS: CT PCR Urine NOT DETECTED (Not Detect.); NG PCR Urine NOT DETECTED (Not Detect.)
== END 2024-12-18 16:36 | disposition home or self-care (01) ==
LOC: HO.HHCLNP 16:35
PROVIDERS: Visit Provider Nurse Practitioner Family
DX: Z00.00 Encounter for general adult medical examination without abnormal findings (principal); Z20.2 Contact with and (suspected) exposure to infections with a predominantly sexual mode of transmission
CPT/HCPCS: 87491; 87591